=== PATIENT | female | born 1950 | race Native Hawaiian/Other Pacific Islander ===

== ENCOUNTER 2018-08-01 12:30 | Emergency (ER) | payer OTHER ==
[~2018-08-01] VITALS: Ht 160 cm; Wt 74.8 kg
[2018-08-01 12:30] VITALS: BP 148/76; TEMP 98.6
[2018-08-01 13:25] LABS: POTASSIUM 2.8 mmol/L (3.6-5.2)
[2018-08-01 13:29] LABS: PLATELET COUNT 220 K/uL (152-353)
[2018-08-01] MEDS ORDERED: DIVA500T2 PO (14:52)
[2018-08-01] MEDS ORDERED: FURO20TA67 PO (14:55)
[2018-08-01] MEDS ORDERED: CORRECTOL100 MG PO (14:55)
[2018-08-01] MEDS ORDERED: METO-837 PO (14:56)
[2018-08-01] MEDS ORDERED: XARELTO20 MG PO (14:58)
[2018-08-01] MEDS ORDERED: LIPITOR40 MG PO (15:01)
[2018-08-01] MEDS ORDERED: OLANZAPINE5 M1 PO (15:02)
[2018-08-01] MEDS ORDERED: CARB25TA29 PO (15:03)
[2018-08-01] MEDS ORDERED: HYDR-3182 PO (15:05)
[2018-08-01] MEDS ORDERED: PROMETHAZINE HY25 MG PO (15:07)
[2018-08-01] MEDS ORDERED: AMLODIPINE BESYLATE PO (15:09)
[2018-08-01] MEDS ORDERED: ASPIRIN325 M1 PO (15:10)
[2018-08-01] MEDS ORDERED: FERROUS SULF325 M1 PO (15:11)
[2018-08-01] MEDS ORDERED: PANTOPRAZOLE SO40 M1 PO (15:12)
[2018-08-01] MEDS ORDERED: POTASSIUM CHLO20 ME1 PO (15:13)
[2018-08-01] MEDS ORDERED: RIVADIS TOP (15:14)
[2018-08-01] MEDS ORDERED: AMIODARONE HCL100 MG PO (15:15)
[2018-08-01] MEDS ORDERED: CLON1TAB18 PO (15:16)
[2018-08-01] MEDS ORDERED: SEROQUEL50 MG PO (15:17)
== END 2018-08-01 13:30 | disposition other institution (70) ==
LOC: ED 12:39
PROVIDERS: Emergency Medicine
DX: R46.89 Other symptoms and signs involving appearance and behavior (principal); E87.6 Hypokalemia; I48.91 Unspecified atrial fibrillation; Z04.6 Encounter for general psychiatric examination, requested by authority
CPT/HCPCS: 36415; 80053; 85027; 93005; 99285